=== PATIENT | female | born 1975 | race African-American/Black ===

== ENCOUNTER 2018-01-06 19:38 | Emergency (ER) | payer OTHER ==
[~2018-01-06] VITALS: Ht 172.7 cm; Wt 74.8 kg
[2018-01-06 20:00] VITALS: BP 106/82
[2018-01-06] MEDS ORDERED: methylPREDNISolone SOD SUCC 125 MG/2 ML VL IM ONE (22:30)
== END 2018-01-06 22:40 | disposition home or self-care (01) ==
LOC: ER 19:38
DX: J45.909 Unspecified asthma, uncomplicated (principal); H65.93 Unspecified nonsuppurative otitis media, bilateral
CPT/HCPCS: 96372; 99283; J2930